=== PATIENT | female | born 1965 | race African-American/Black ===

== ENCOUNTER 2019-04-03 02:05 | Emergency (ER) | payer SELFPAY ==
[~2019-04-03] VITALS: Ht 144.8 cm; Wt 66.7 kg
[2019-04-03 02:10] VITALS: BP 146/98
--- NOTE | 2019-04-03 02:22 | PHYS DOC ---
Adult General Chief Complaint Chief Complaint: SKIN PROBLEM HPI HPI 53-year-old female presents to the emergency department with concern for cellulitis, drainage. Patient has a history of breast cancer surgery in November. Sh tasha's been on radiation treatments with her most recent in March. She states Thursday she noticed development of breakdown of her right chest wound. She's had drainage, worsening pain, intermittent fevers. She is concerned of worsening infection. Patient denies any nausea, vomiting, shortness of breath. She just moved here from [place] has been referred to Daniela Valenzuela M.D. However has yet to see her in consultation. Patient states movements make her pain worse. She describes her pain as 6 out of 10. Review of Systems Review of Systems Constitutional: Fevers, chills Respiratory: Denies cough or shortness of breath [] Cardiovascular: No additional information not addressed in HPI [] GI: Denies abdominal pain, nausea, vomiting, bloody stools or diarrhea [] Musculoskeletal: Denies back pain or joint pain [] Integument: Skin breakdown related to radiation area, drainage. Neurologic: Denies headache, focal weakness or sensory changes [] All other systems were reviewed and found to be within normal limits, except as documented in this note. Current Medications Current Medications Current Medications Medications (Trade) Dose Ordered Sig/Marian Start Time Stop Time Status Last Admin Dose Admin Morphine Sulfate (Morphine Sulfate) 2 mg 1X ONCE 04/03/19 02:45 04/03/19 02:46 DC 04/03/19 02:44 2 MG Ondansetron HCl (Zofran) 4 mg 1X ONCE 04/03/19 02:45 04/03/19 02:46 DC 04/03/19 02:43 4 MG Vancomycin HCl 250 ml @ 250 mls/hr 1X ONCE 04/03/19 02:45 04/03/19 03:44 04/03/19 02:44 250 MLS/HR Allergies Allergies Allergies Coded Allergies Type Severity Reaction Last Updated Verified fluconazole Allergy Unknown 04/03/19 Yes Physical Exam Physical Exam Constitutional: Well developed, well nourished, mild distress secondary to pain, non-toxic appearance. [] HENT: Normocephalic, atraumatic, bilateral external ears normal, oropharynx moist, no oral exudates, nose normal. [] Eyes: PERRLA, EOMI, conjunctiva normal, no discharge. [] Cardiovascular:Heart rate regular rhythm, no murmur [] Lungs & Thorax: Bilateral breath sounds clear to auscultation [] Abdomen: Bowel sounds normal, soft, no tenderness, no masses, no pulsatile masses. [] Skin: Ideation ga appreciated to right sided chest, incision site appears to be mildly open with some crusty drainage, there is no significant fluctuance. She as well has sloughing of the skin distally to the incision. Extremities: No tenderness, no edema. [] Neurologic: Alert and oriented X 3, no focal deficits noted. [] Psychologic: Affect normal, judgement normal, mood normal. [] Current Patient Data Vital Signs Vital Signs Date Time Temp Pulse Resp B/P (MAP) Pulse Ox O2 Delivery O2 Flow Rate FiO2 04/03/19 02:44 18 100 Room Air 04/03/19 02:10 98.6 96 146/98 (114) 98.6 Lab Values Laboratory Tests Test 04/03/19 02:30 White Blood Count 2.9 x10^3/uL (4.0-11.0) L Red Blood Count 4.51 x10^6/uL (3.50-5.40) Hemoglobin 12.8 g/dL (12.0-15.5) Hematocrit 38.7 % (36.0-47.0) Mean Corpuscular Volume 86 fL (79-100) Mean Corpuscular Hemoglobin 28 pg (25-35) Mean Corpuscular Hemoglobin Concent 33 g/dL (31-37) Red Cell Distribution Width 17.4 % (11.5-14.5) H Platelet Count 269 x10^3/uL (140-400) Neutrophils (%) (Auto) 47 % (31-73) Lymphocytes (%) (Auto) 31 % (24-48) Monocytes (%) (Auto) 19 % (0-9) H Eosinophils (%) (Auto) 3 % (0-3) Basophils (%) (Auto) 1 % (0-3) Neutrophils # (Auto) 1.4 x10^3/uL (1.8-7.7) L Lymphocytes # (Auto) 0.9 x10^3/uL (1.0-4.8) L Monocytes # (Auto) 0.6 x10^3/uL (0.0-1.1) Eosinophils # (Auto) 0.1 x10^3/uL (0.0-0.7) Basophils # (Auto) 0.0 x10^3/uL (0.0-0.2) Sodium Level 142 mmol/L (136-145) Potassium Level 3.8 mmol/L (3.5-5.1) Chloride Level 105 mmol/L (98-107) Carbon Dioxide Level 28 mmol/L (21-32) Anion Gap 9 (6-14) Blood Urea Nitrogen 10 mg/dL (7-20) Creatinine 0.8 mg/dL (0.6-1.0) Estimated GFR (Cockcroft-Gault) 75.3 BUN/Creatinine Ratio 13 (6-20) Glucose Level 120 mg/dL (70-99) H Lactic Acid Level 1.3 mmol/L (0.4-2.0) Calcium Level 9.2 mg/dL (8.5-10.1) Total Bilirubin 0.2 mg/dL (0.2-1.0) Aspartate Amino Transferase (AST) 16 U/L (15-37) Alanine Aminotransferase (ALT) 21 U/L (14-59) Alkaline Phosphatase 114 U/L (46-116) Total Protein 8.3 g/dL (6.4-8.2) H Albumin 3.7 g/dL (3.4-5.0) Albumin/Globulin Ratio 0.8 (1.0-1.7) L Laboratory Tests 04/03/19 02:30 Laboratory Tests 04/03/19 02:30 EKG EKG [] Radiology/Procedures Radiology/Procedures [] Course & Med Decision Making Course & Med Decision Making Pertinent Labs and Imaging studies reviewed. (See chart for details) []53-year-old female presents to the emergency department with concern for cellulitis, drainage. Patient has a history of breast cancer surgery in November. She's been on radiation treatments with her most recent in March. She states Thursday she noticed development of breakdown of her right chest wound. She's had drainage, worsening pain, intermittent fevers. She is concerned of worsening infection. Patient denies any nausea, vomiting, shortness of breath. She just moved here from [place] has been referred to Daniela Valenzuela M.D. However has yet to see her in consultation. Patient states movements make her pain worse. She describes her pain as 6 out of 10. Patient received IV abx (vancomycin) upon presentation with IV pain medications Reassessment 0324 - pain overall improved - patient states she feels better Labs reviewed with patient - lactic 1.3 VS improved Discussed staying vs trial of outpatient abx therapy - family chose outpatient treatment with plans for follow up with outpatient physician Discussed abx therapy and pain medications upon discharge Gil Disclaimer Dragon Disclaimer This electronic medical record was generated, in whole or in part, using a voice recognition dictation system. Departure Departure Impression: Primary Impression: Cellulitis Disposition: HOME, SELF-CARE Condition: STABLE Patient Instructions: Cellulitis, [id number] Additional Instructions: Recommend follow up with PCP 3 - 5 days Return to the ER with worsening symptoms, intractable pain, fever, altered mental status Tylenol/Motrin as needed for pain Take bactrim as prescribed Take norco as prescribed Follow up with Dr. Valenzuela as scheduled Scripts Sulfamethoxazole/Trimethoprim (BACTRIM DS TABLET) 1 Each Tablet 1 TAB PO BID for infection, #14 TAB Prov: CARLITA KING MD 04/03/19 Hydrocodone/Apap 5-325 (NORCO 5-325 TABLET) 1 Each Tablet 1 TAB PO PRN Q6HRS PRN for PAIN, #10 TAB 0 Refills Prov: CARLITA KING MD 04/03/19 Problem Qualifiers Primary Impression: Cellulitis Site of cellulitis: unspecified site Qualified Codes: L03.90 - Cellulitis, unspecified CARLITA KING MD Apr 03, 2019 02:22
[2019-04-03 02:45] LABS: BASO % 1 % (0-3); EOS # 0.1 x10^3/uL (0.0-0.7); EOS % 3 % (0-3); HEMATOCRIT 38.7 % (36.0-47.0); HEMOGLOBIN 12.8 g/dL (12.0-15.5); LYMPH # 0.9 x10^3/uL (1.0-4.8); LYMPH % 31 % (24-48); MEAN CORPUSCULAR HEMOGLOBIN 28 pg (25-35); MEAN CORPUSCULAR HGB CONC 33 g/dL (31-37); MEAN CORPUSCULAR VOLUME 86 fL (79-100); MONO # 0.6 x10^3/uL (0.0-1.1); MONO % 19 % (0-9); NEUT # 1.4 x10^3/uL (1.8-7.7); NEUT % 47 % (31-73); PLATELET COUNT 269 x10^3/uL (140-400); RED BLOOD COUNT 4.51 x10^6/uL (3.50-5.40); RED CELL DISTRIBUTION WIDTH 17.4 % (11.5-14.5); WHITE BLOOD COUNT 2.9 x10^3/uL (4.0-11.0)
[2019-04-03] MEDS ORDERED: MORPHINE SULFATE 2 MG/ML VIAL. IV ONE (02:45)
[2019-04-03] MEDS ORDERED: ONDANSETRON PF 4 MG/2 ML VIAL. IV ONE (02:45)
[2019-04-03] MEDS ORDERED: VANCOMYCIN 1GM IVPB FOR OMNI 250 ML IV ONE (02:45)
[2019-04-03 02:57] LABS: CALCIUM 9.2 mg/dL (8.5-10.1); CREATININE 0.8 mg/dL (0.6-1.0); GFR 75.3; POTASSIUM 3.8 mmol/L (3.5-5.1)
[2019-04-03 03:03] LABS: ALBUMIN 3.7 g/dL (3.4-5.0); ALBUMIN/GLOBULIN RATIO 0.8 (1.0-1.7); TOTAL BILIRUBIN 0.2 mg/dL (0.2-1.0); TOTAL PROTEIN 8.3 g/dL (6.4-8.2)
[2019-04-03] MEDS ORDERED: HYDR-3164 PO (03:28)
[2019-04-03] MEDS ORDERED: SULF1TAB24 PO (03:28)
== END 2019-04-03 03:55 | disposition home or self-care (01) ==
LOC: ER 02:05
DX: L03.313 Cellulitis of chest wall (principal)
CPT/HCPCS: 36415; 80053; 83605; 85025; 96374; 96375; 99284; J2270; J2405; J3370